=== PATIENT | male | born 1945 | race Caucasian/White ===

== ENCOUNTER → 2016-05-30 13:28 | Outpatient (CLI) | payer MEDICARE, OTHER, BC ==
[2014-11-05 09:43] VITALS: BMI 32.6
[~2016-05-30 13:28] MED LIST: BAYER CHEWABLE81 MG PO; CARDIZEM CD300 MG PO; CENTRUM COMPLE1 EACH PO; DICLOFENAC SODI50 MG PO; FEXOFENADINE H180 MG PO; GEMFIBROZIL600 MG PO; GLIPIZIDE10 MG PO; HEMOCYTE PLUS C1 CAP PO; HYDROCODON-ACE1 EAC7 PO; HYDROCODONE-APA1 TAB PO; METFORMIN HCL500 M1 PO; MIRAPEX0.25 MG PO; PRAVACHOL20 MG PO; XARELTO20 MG PO; ZESTRIL20 MG PO; ZYLOPRIM300 MG PO; [UNRECOGNIZED DRUG - REMARK] PO
[2016-05-30 16:37] LABS: ERYTHROCYTE SEDIMENTATION RATE 6 mm/hr (0-20)
[2016-05-31 10:20] LABS: ANA REFLEX - DIRECT Negative (Negative)
== END | disposition home or self-care (01) ==
LOC: D.RT 13:28
PROVIDERS: Internal Medicine Pulmonary Disease
DX: J90 Pleural effusion, not elsewhere classified (principal)

== ENCOUNTER → 2016-06-27 19:37 | Outpatient (CLI) | payer MEDICARE, OTHER, BC ==
[2014-11-05 09:43] VITALS: BMI 32.6
== END | disposition home or self-care (01) ==
LOC: D.SLEEP 19:37
DX: G47.36 Sleep related hypoventilation in conditions classified elsewhere (principal)

== ENCOUNTER → 2017-04-27 13:30 | Outpatient (CLI) | payer MEDICARE, OTHER, BC ==
[2014-11-05 09:43] VITALS: BMI 32.6
== END | disposition home or self-care (01) ==
LOC: D.RT 13:30
DX: J45.909 Unspecified asthma, uncomplicated (principal)

== ENCOUNTER → 2018-05-02 09:52 | Outpatient (CLI) | payer MEDICARE, OTHER, BC ==
[2014-11-05 09:43] VITALS: BMI 32.6
== END | disposition home or self-care (01) ==
LOC: D.RT 09:52
PROVIDERS: ATTEND Internal Medicine Pulmonary Disease
DX: J45.909 Unspecified asthma, uncomplicated (principal)

== ENCOUNTER → 2018-06-19 10:06 | Outpatient (CLI) | payer MEDICARE, OTHER, BC ==
[2014-11-05 09:43] VITALS: BMI 32.6
--- NOTE | 2018-06-26 13:33 | EC ---
PATIENT:AZAM LATHAM DATE OF SERVICE: 06/19/18 SEX: M MEDICAL RECORD: [id number] DATE OF : 45 [facility] AGE OF PATIENT: 72 ADMISSION DATE: 06/19/18 REFERRING PHYSICIAN: INTERPRETING PHYSICIAN: EDEN MAURICIO MD ECHOCARDIOGRAM REPORT ECHO CHARGES 4 ECHO COMPLETE Date: 06/19/18 CLINICAL DIAGNOSIS: H/O CAD/CABG/HTN ECHOCARDIOGRAPHIC MEASUREMENTS (adult normal given) AC root (d.<3.7cm) 3.5 cm LV Septum d (<1.2 cm> 1.2 cm Valve Excursion 2.1 cm LV Septum (systole) 1.9 cm Left Atria (s.<4.0cm> 5.7 cm LVPW d(<1.2cm) 1.2 cm RV (d.<2.3cm) 3.3 cm LVPW (sytole) 1.6 cm LV diastole(<5.6CM) 6.7 cm MV E-F(>70mm/sec) cm LV systole 4.6 cm LVOT Diameter 1.9 cm MV exc.(>10mm) cm Est.ejection fraction (50-75%) % DOPPLER: LVIT cm/sec A 100 cm/sec E 57.0 cm/sec LA cm/sec RVSP 27.0 mmHg LVOT 107 cm/sec AOP1/2T m/s Asc. Ao 142 cm/sec RVOT 68.0 cm/sec RA cm/sec PA 94.0 cm/sec AV Gradient Peak 8.1 mmHg AV Mean 4.5 mmHg AV Area 2.0 cm MV Gradient Peak 6.7 mmHg MV Mean 2.2 mmHg MV Area cm COMMENTS: OP - HC Manager Office: Kip HUTCHINSON LEA Production Wood Craftsman: 3 Dr. Clayton TAPE# PACS Pericardial Effusion N DATE OF SERVICE: Adequate 2D echo, color flow, spectral Doppler, and M-Mode. Borderline LVH. LV internal dimension is normal. Wall motion is normal. EF is greater than or equal to 55%. Aortic valve is sclerotic. No evidence of stenosis on Doppler interrogation. Left atrium is dilated at 5.7 cm. Mitral valve shows no prolapse. Mild MR. Right-sided chambers grossly normal. Mild TR. TRANSINT:[id number] Voice Confirmation ID: [id number] DOCUMENT ID: [id number] ECHOCARDIOGRAM REPORT [id number] AZAM LATHAM,EDEN Wall MD at 1333 CC: [id number] DICTATION DATE: 06/24/[address] MAINTENANCE SUPERVISOR: 06/24/18 1355 DEP CLI 06/19/18 [place] [id number] [place] [id number]
== END | disposition home or self-care (01) ==
LOC: D.HCCARDIO 10:00
PROVIDERS: ATTEND Internal Medicine Interventional Cardiology
DX: I25.10 Atherosclerotic heart disease of native coronary artery without angina pectoris (principal)

== ENCOUNTER → 2019-07-09 09:01 | Outpatient (CLI) | payer MEDICARE, OTHER ==
[2014-11-05 09:43] VITALS: BMI 32.6
--- NOTE | 2019-07-10 14:16 | EC ---
PATIENT:AZAM LATHAM DATE OF SERVICE: 07/09/19 SEX: M MEDICAL RECORD: [id number] DATE OF : [birth year] LOCATION:[facility] AGE OF PATIENT: 73 ADMISSION DATE: 07/09/19 REFERRING PHYSICIAN: INTERPRETING PHYSICIAN: EDEN MAURICIO MD ECHOCARDIOGRAM REPORT ECHO CHARGES 4 ECHO COMPLETE Date: 07/09/19 CLINICAL DIAGNOSIS: HTN/CAD ASSESS EF/MR/TR ECHOCARDIOGRAPHIC MEASUREMENTS (adult normal given) AC root (d.<3.7cm) 3.8 cm LV Septum d (<1.2 cm> 1.5 cm Valve Excursion 2.2 cm LV Septum (systole) 1.8 cm Left Atria (s.<4.0cm> 4.6 cm LVPW d(<1.2cm) 1.8 cm RV (d.<2.3cm) 4.2 cm LVPW (sytole) 2.0 cm LV diastole(<5.6CM) 5.4 cm MV E-F(>70mm/sec) cm LV systole 4.5 cm LVOT Diameter 2.0 cm MV exc.(>10mm) 0.90 cm Est.ejection fraction (50-75%) % DOPPLER: LVIT cm/sec A 113.0cm/sec E 79.0 cm/sec LA cm/sec RVSP 36 mmHg LVOT 120 cm/sec AOP1/2T m/s Asc. Ao 152 cm/sec RVOT 83 cm/sec RA cm/sec PA 92 cm/sec AV Gradient Peak 9.26 mmHg AV Mean 5.10 mmHg AV Area 2.8 cm MV Gradient Peak 7.27 mmHg MV Mean 2.47 mmHg MV Area cm COMMENTS: Reformatory Attendant: 2 ROSENDO CUMMINS Insurance Administrator: 3 Dr. Clayton TAPE# PACS Pericardial Effusion N DATE OF SERVICE: Adequate 2D, color flow imaging, spectral Doppler, and M-Mode LVH is present. LV internal dimensions are normal. Wall motion is normal. EF is greater than or equal to 55%. Aortic valve is sclerotic. No evidence of stenosis by Doppler interrogation. Left atrium is mildly dilated at 4.6 cm. Mitral valve shows no prolapse. Trace MR. Right-sided chambers are grossly normal. Trace TR. ECHOCARDIOGRAM REPORT [id number] AZAM LATHAM TRANSINT:[id number] Voice Confirmation ID: [id number] DOCUMENT ID: [id number] EDEN MAURICIO MD at 1416 CC: [id number] DICTATION DATE: 07/10/19817 TRAFFIC CIRCUIT ENGINEER: 07/10/1949 DEP CLI 07/09/19 [place] [id number] [place] [id number]
== END | disposition home or self-care (01) ==
LOC: D.HCCECHO 09:00
PROVIDERS: ATTEND Internal Medicine Interventional Cardiology
DX: I10 Essential (primary) hypertension (principal)

== ENCOUNTER → 2019-07-29 11:29 | Outpatient (CLI) | payer MEDICARE, OTHER ==
[2014-11-05 09:43] VITALS: BMI 32.6
== END | disposition home or self-care (01) ==
LOC: D.LABREF 11:29
PROVIDERS: ATTEND Internal Medicine Pulmonary Disease
DX: Z11.59 Encounter for screening for other viral diseases (principal)

== ENCOUNTER → 2019-07-30 11:52 | Outpatient (CLI) | payer MEDICARE, OTHER, BC ==
[2014-11-05 09:43] VITALS: BMI 32.6
== END | disposition home or self-care (01) ==
LOC: D.RT 05-28 11:00
PROVIDERS: ATTEND Internal Medicine Pulmonary Disease
DX: J45.909 Unspecified asthma, uncomplicated (principal)

== ENCOUNTER 2019-08-07 10:51 | Emergency (ER) | payer MEDICARE, OTHER, BC ==
[~2019-08-07] VITALS: Ht 180.3 cm; Wt 100.0 kg
[2019-08-07 11:00] VITALS: Ht 180.3 cm; Wt 100.0 kg
[2019-08-07] MEDS ORDERED: SLOW RELEASE I160 MG PO (11:07)
[2019-08-07] MEDS ORDERED: KLOR-CON 1010 MEQ PO (11:08)
[2019-08-07] MEDS ORDERED: LYRICA50 MG PO (11:08)
[2019-08-07 14:13] VITALS: BP 133/45
== END 2019-08-07 14:15 | disposition other institution (70) ==
LOC: D.ER 10:51
DX: K92.2 Gastrointestinal hemorrhage, unspecified (principal); D64.9 Anemia, unspecified; T17.918A Gastric contents in respiratory tract, part unspecified causing other injury, initial encounter; K92.0 Hematemesis; E87.5 Hyperkalemia; K92.1 Melena; E11.9 Type 2 diabetes mellitus without complications; I10 Essential (primary) hypertension; Z79.84 Long term (current) use of oral hypoglycemic drugs; R53.1 Weakness

== ENCOUNTER 2019-10-02 12:33 | Inpatient (IN) | payer MEDICARE, OTHER, BC ==
[~2019-10-02] VITALS: Ht 177.8 cm; Wt 97.5 kg
[~2019-10-02 12:33] MED LIST changes: +KLOR-CON 1010 MEQ PO; +LYRICA50 MG PO; +SLOW RELEASE I160 MG PO
[2019-10-07] MEDS ORDERED: SINGULAIR10 MG PO (13:44)
[2019-10-07] MEDS ORDERED: PROTONIX40 MG PO (14:07)
[2019-10-08 11:57] LABS: CALCIUM 9.9 mg/dL (8.5-10.1); CREATININE - SERUM 1.4 mg/dL (0.6-1.3)
[2019-10-08 12:03] LABS: BASOPHILS 0.3 % (0-2); EOSINOPHILS 1.8 % (0-7); HEMATOCRIT 42.7 % (42.0-54.0); HEMOGLOBIN 14.3 g/dL (13.5-17.5); IMMATURE GRANULOCYTES 0.3 % (0-5); LYMPHOCYTES 14.9 % (15-50); MCH 31.8 pg (26.0-34.0); MCHC 33.5 g/dL (31.0-37.0); MCV 95.1 fL (80.0-100.0); MEAN PLATELET VOLUME 8.8 fL (7.4-10.4); NEUTROPHILS 71.7 % (40-80); PLATELET COUNT 253 10x3/uL (130-400); RBC 4.49 10x6/uL (4.20-6.10); RDW 15.1 % (11.5-14.5); WBC 6.8 10x3/uL (4.8-10.8)
[2019-10-08 12:13] LABS: APTT 32.3 SECONDS (22.8-39.4); INR 1.73 (0.85-1.17); PROTIME 20.1 SECONDS (11.6-15.0)
[2019-10-08 12:17] LABS: BILIRUBIN NEGATIVE (NEGATIVE); GLUCOSE NEGATIVE (NEGATIVE); KETONE NEGATIVE (NEGATIVE); NITRITE NEGATIVE (NEGATIVE); UROBILINOGEN NORMAL (NORMAL)
[2019-10-13] VITALS (13 sets, daily range): BP systolic 92–149; BP diastolic 56–88; BMI 30.9
--- NOTE | 2019-10-13 14:03 | NUR ---
PATIENT IN ROOM VIA BED. POST OP VITAL SIGNS TAKEN. ASSESSMENT PER FLOWSHEET. DENIES PAIN OR NEEDS AT THIS TIME. BED LOW POSITION, CALL LIGHT IN REACH, FALL PRECAUTIONS IN PLACE. WILL CONTINUE TO MONITOR.
--- NOTE | 2019-10-13 18:30 | NUR ---
PATIENT PLACED ON CPM MACHINE PER ORDER.
[2019-10-14] VITALS: BP 120/66
[2019-10-14 04:00] VITALS: BP 92/46
[2019-10-14 04:52] LABS: HEMOGLOBIN 11.1 g/dL (13.5-17.5); MCHC 32.6 g/dL (31.0-37.0); MEAN PLATELET VOLUME 8.7 fL (7.4-10.4); RBC 3.58 10x6/uL (4.20-6.10); RDW 14.8 % (11.5-14.5); WBC 5.5 10x3/uL (4.8-10.8)
[2019-10-14 05:07] LABS: ANION GAP 10.5 mmol/L (8-16); CALCIUM 7.5 mg/dL (8.5-10.1); CREATININE - SERUM 1.3 mg/dL (0.6-1.3); POTASSIUM - SERUM 4.5 mmol/L (3.5-5.1)
--- NOTE | 2019-10-14 07:08 | CN ---
PATIENT NAME:AZAM LATHAM MEDICAL RECORD: [id number] : 45 LOCATION:D[facility] ADMIT DATE: 10/13/19 ACCOUNT: [id number] CONSULTING PHYSICIAN: CYNTHIA CURTIS MD REFERRING PHYSICIAN: CHARLOTTE MILLS MD DATE OF CONSULTATION: 10/13/2019 REASON FOR CONSULTATION: Medical management and diabetic post left total knee replacement. ADMITTING PHYSICIAN: Charlotte Mills MD HISTORY OF PRESENT ILLNESS: The patient is a 73-year-old male, history of metabolic syndrome and CAD. He has been stable from those standpoints recently, in August of this year developed a bleeding ulcer, requiring transient intubation because of hemorrhagic shock. He received 4 units of packed cells and stabilized. Since that time, he has been doing well from a GI standpoint. His preoperative hemoglobin was 14. He has had no melena. He is now immediately postoperative, alert and oriented with anesthesia in his left lower leg. PAST MEDICAL HISTORY: Bleeding duodenal ulcer as mentioned above; history of DVT, PE, on chronic Xarelto therapy; acute blood loss anemia, 08/11/2019; type 2 diabetes mellitus; renal insufficiency; osteoarthritis; hyperlipidemia; Agent Kinney exposure; asbestos exposure; history of asthma; BPH; CHF; diverticulosis; GERD; gout; essential hypertension; history of renal stones; obstructive lung disease; adult sleep apnea; PE, 1980. PAST SURGICAL HISTORY: Cholecystectomy, CABG, history of cyst removal from left kidney, kidney stones removed surgically, tonsillectomy, colonoscopy. ALLERGIES: None known. FAMILY HISTORY: Father had colon cancer. Mother, hypertension and heart disease. SOCIAL HISTORY: Never smoked. Was exposed to asbestos. Does not use alcohol. He is retired from [employer] and is . HOME MEDICATIONS: Xarelto 20 mg at bedtime, diltiazem CD 300 mg a day, gemfibrozil 600 mg a day, lisinopril 20 mg a day, pravastatin 20 mg at bedtime, potassium chloride 10 mEq ER daily, Lyrica 50 mg p.o. daily, Mirapex 0.5 mg at bedtime, Singulair 10 mg at bedtime, Protonix 40 mg a day, Glucotrol 10 mg daily, metformin 500 mg at bedtime, folic acid 1 mg daily, allopurinol 300 mg daily. REVIEW OF SYSTEMS: CONSTITUTIONAL: Denies fever or fatigue recently. HEENT: No recent visual change, sinus congestion, or sore throat. Wears glasses to read. RESPIRATORY: No exertional shortness of breath, cough, sputum production. CARDIAC: No recent chest pain, PND, orthopnea, claudication, or edema. GASTROINTESTINAL: No recent nausea, vomiting, change in stools, blood per rectum, or melena. ENDOCRINE: Denies polyuria, polydipsia, heat or cold intolerance. CONSULT REPORT [id number] YEISONAZAM ALEJO NEUROLOGIC: No history of stroke, TIA, vascular headaches, or seizures. PSYCHIATRIC: Denies depressed mood. MUSCULOSKELETAL: Chronic severe pain in his left knee. PHYSICAL EXAMINATION: VITAL SIGNS: Temperature 97.7, pulse 69 and regular, respirations 14, blood pressure 135/67 with a sat of 95% on room air. GENERAL: She is alert and oriented. HEENT: Eyes are clear. Oropharynx unremarkable. NECK: Supple. CHEST: Healed sternotomy scar. LUNGS: Clear. HEART: Regular without murmur. PMI appropriate. ABDOMEN: Soft, nontender. GENITOURINARY: Deferred. EXTREMITIES: His left knee is postoperative and wrapped in a dressing and Melchor bandage without drain. Right knee shows good range of motion, no peripheral edema, no cyanosis. NEUROLOGICAL: Oriented to person, place, and time. Cranial nerves grossly intact. Gait was not tested due to postoperative state. LABORATORY DATA: CBC: White count 6800, H&H are 14 and 42.7 respectively. Sodium is 134, BUN and creatinine are 26 and 1.4, glucose is 118 fasting, potassium 5.0. Urinalysis is clear. ASSESSMENT: 1. Postoperative day zero, left total knee replacement. 2. Recent peptic ulcer disease and hemorrhage, clinically stable. 3. CAD, stable. 4. AODM, well controlled. 5. Diabetic neuropathy. 6. Hyperlipidemia; hypertension; BPH; remote, PE, DVT, on chronic Xarelto anticoagulation; restrictive lung disease; obstructive sleep apnea. PLAN: Continue current medicines. Follow H&H. We will resume Xarelto when safe postoperatively as determined by Dr. Mills. Thank you for this consult. NTS:[id number] Voice Confirmation ID: [id number] DOCUMENT ID: [id number] CYNTHIA CURTIS MD at 9708 CC: [id number] DICTATION DATE: 10/13/191806 OPERATOR AUTOMATED PROCESS: 10/13/191931 ADM IN [place] [address] [place] [address]
--- NOTE | 2019-10-14 07:46 | NUR ---
ALERT AND ORIENTED. LUNGS CLEAR BILATERALLY. HEART SOUNDS S1 AND S2 HEARD IN ALL OTRRE. BOWEL SOUNDS ACTIVE X 4. IV TO RFA PATENT WITHOUT REDNESS. DENIES NEEDS. BED LOW. CALL MCGRAW AND PERSONAL ITEMS IN REACH. WILL CONTINUE TO MONITOR.
[2019-10-14 09:17] VITALS: BP 112/54
--- NOTE | 2019-10-14 11:21 | NUR ---
REPORT CALLED TO SHELLI ON M3.
--- NOTE | 2019-10-14 12:19 | NUR ---
PT RECIEVED FROM MED SURG BY BED, CARE ASSUMED. FAMILY AT BEDSIDE. BED LOW, CALL LIGHT IN REACH. NO OTHER NEEDS AT THIS TIME.
[2019-10-14 14:06] VITALS: Ht 177.8 cm; Wt 97.5 kg
[2019-10-14 15:11] VITALS: BP 155/66
[2019-10-14 20:00] VITALS: BP 147/70
--- NOTE | 2019-10-14 20:00 | NUR ---
ALERT RESTING IN BED,MEDICATED FOR PAIN ORDERED, CPM IN USE, SEE SHIFT ASSESSMENT CALL LIGHT IN REACH
[2019-10-15 04:00] VITALS: BP 156/76
[2019-10-15 08:00] VITALS: BP 147/66
--- NOTE | 2019-10-15 08:25 | NUR ---
PT SITTING UP IN BED A&O X4, DENIES PAIN. PIV IN RIGHT FOREARM, PATENT, NO REDNESS OR SWELLING. SCD ON RLE. TELEMETRY IN PLACE, 75 SR BUNDLE BRANCH BLOCK. CPM IN PLACE ON LLE. TITA WRAP ON LEFT KNEE, C/D/I. PT ABLE TO ABULATE WITH ONE PERSON ASSIST. EDUCATED PT ON CL AND NEEDS. BED LOW, RAILS X2. CL IN REACH. WILL CONTINUE TO MONITOR.
--- NOTE | 2019-10-15 09:00 | NUR ---
REMOVED CPM FROM LLE. ASSISTED PT TO CHAIR, PT TOLERATED WELL. DENIES FURTHER NEEDS. CHAIR ALARM ON, WILL CONTINUE TO MONITOR.
--- NOTE | 2019-10-15 11:23 | NUR ---
CHECKED BS, ADMINISTERED INSULIN. PT SITTING UP IN CHAIR, DENIES FURTHER NEEDS. WILL CONTINUE TO MONITOR
[2019-10-15 11:25] VITALS: BP 150/72
--- NOTE | 2019-10-15 15:24 | MORECARE ---
CASE MANAGEMENT DISCHARGE SUMMARY PATIENT: AZAM LATHAM UNIT: [id number] ADM DATE: 10/13/19 AGE: 73 : 45 SEX: M ROOM/BED: D.1207 AUTHOR: STEPHANIE BROWN PHYSICIAN: REFERRING PHYSICIAN: CHARLOTTE MILLS MD DATE OF SERVICE: 10/15/19 Discharge Plan Patient Name: AZAM LATHAM [facility] [facility] 1945 Planned Disposition: Home or Self Care Anticipated Discharge Date: Discharge Date: Expected LOS: Initial Reviewer: [email or web address] Initial Review Date: 10/13/2019 Generated: 10/15/19 4:23 pm DCPIA - Discharge Planning Initial Assessment Updated by [email or web address]: Jena Lopez on 10/15/19 3:18 pm * Is the patient Alert and Oriented? Yes * How many steps to enter\exit or inside your home? * PCP NEPALESE * Pharmacy [facility] IN [place] * Preadmission Environment Home with Family * ADLs Independent * Equipment Rolling Walker * List name and contact numbers for known caregivers / representatives who currently or will assist patient after discharge: ALEXANDRA (SPOUSE) [phone] * Verbal permission to speak to the caregivers and representatives has been obtained from the patient. N/A * Community resources currently utilized None * Additional services required to return to the preadmission environment? Yes * Can the patient safely return to the preadmission environment? Yes * Has this patient been hospitalized within the prior 30 days at any hospital? No Patient Name: AZAM LATHAM Page [id number] at 1524 All edits/amendments must be made on the electronic document DICTATION DATE: 10/15/19 1524 WET CLEANER MACHINE: MELISSA 10/15/19 1524 RPT#: [id number] DC DATE: STATUS: ADM IN [facility] [address] [place] [address] END OF REPORT
--- NOTE | 2019-10-15 15:33 | MORECARE ---
CASE MANAGEMENT DISCHARGE SUMMARY PATIENT: AZAM LATHAM UNIT: [id number] ADM DATE: 10/13/19 AGE: 73 : 45 SEX: M ROOM/BED: D.1207 AUTHOR: STEPHANIE,DOC PHYSICIAN: REFERRING PHYSICIAN: CHARLOTTE MILLS MD DATE OF SERVICE: 10/15/19 Discharge Plan Patient Name: AZAM LATHAM Facility: [facility]:[place] : 1945 Planned Disposition: Home or Self Care Anticipated Discharge Date: Discharge Date: Expected LOS: Initial Reviewer: [email or web address] Initial Review Date: 10/13/2019 Generated: 10/15/19 4:32 pm Comments DCP- Discharge Planning Updated by [email or web address]: Jena Lopez on 10/15/19 2:[address] Patient Name: AZAM LATHAM Admission Status: Urgent Accout number: [id number] Admission Date: 10-13-2019 : 1945 Admission Diagnosis: Attending: CHARLOTTE MILLS Current LOS: 2 Anticipated DC Date: Planned Disposition: Home or Self Care Primary Insurance: MEDICARE A & B Discharge Planning Comments: CM met with patient to complete initial dc planning assessment. CM educated patient on the CM role and verbal consent given by patient to complete assessment. Patient lives at home with his spouse. At discharge patient plans to return home and feels this is a safe discharge. CM discussed availability of home health, rehab services, and medical equipment. He has a walker in the room. He would like to go to [facility]. I will call and make the first appointment for him. His will be his company driver home. Patient denied known discharge needs at this time. IMM served and explained. CM will continue to follow and will assist as needed with dc plans/needs. Process Stripper: Jena Lopez DCPIA - Discharge Planning Initial Assessment Updated by [email or web address]: Jena Lopez on 10/15/19 3:18 pm * Is the patient Alert and Oriented? Yes * How many steps to enter\exit or inside your home? * PCP CZECH * Pharmacy [facility] IN [place] * Preadmission Environment Home with Family * ADLs Independent * Equipment Rolling Walker * List name and contact numbers for known caregivers / representatives who currently or will assist patient after discharge: ALEXANDRA (SPOUSE) [phone] * Verbal permission to speak to the caregivers and representatives has been obtained from the patient. N/A * Community resources currently utilized None * Additional services required to return to the preadmission environment? Yes * Can the patient safely return to the preadmission environment? Yes * Has this patient been hospitalized within the prior 30 days at any hospital? No Coverage Notice Reviewer: [id number] Clovis Lopez Notice Issued Date-Time: 10/15/2019 13:45 Notice Type: IM Discharge Notice Notice Delivered To: Patient Relationship to Patient: Referral Manager Name: Delivery Method: HAND - Hand Delivered Chelsea Days: Prior Verbal Notification: Recipient Understood Notice: Yes Recipient Signature: Yes Med Rec Note Co-signed by Attending: Coverage Notice Comment: Last DP export: 10/15/19 2:24 p Patient Name: AZAM LATHAM Page [id number] at 1533 All edits/amendments must be made on the electronic document DICTATION DATE: 10/15/19 153 FEED CRUSHER OPERATOR: MELISSA 10/15/19 153 RPT#: [id number] DC DATE: STATUS: ADM IN [facility] [address] [place] [address] END OF REPORT
[2019-10-15 16:00] VITALS: BP 127/60
--- NOTE | 2019-10-15 17:15 | NUR ---
PT C/O PAIN 08/12, PROVIDED PAIN MEDS. DENIES FURTHER NEEDS. BED LOW, CL IN REACH. WILL CONTINUE TO MONITOR.
[2019-10-15 19:35] VITALS: BP 138/65
[2019-10-15 19:45] LABS: HEMATOCRIT 34.9 % (42.0-54.0); HEMOGLOBIN 11.6 g/dL (13.5-17.5); MCH 31.4 pg (26.0-34.0); MCHC 33.2 g/dL (31.0-37.0); MCV 94.6 fL (80.0-100.0); MEAN PLATELET VOLUME 8.8 fL (7.4-10.4); RBC 3.69 10x6/uL (4.20-6.10); RDW 14.7 % (11.5-14.5)
[2019-10-15 19:46] LABS: WBC 9.4 10x3/uL (4.8-10.8)
--- NOTE | 2019-10-15 20:00 | NUR ---
ALERT RESTING IN BED CPM IN USE, DENIES NEEDS AT THIS TIME, AT BEDSIDE, CALL LIGHT IN REACH
[2019-10-16 05:39] VITALS: BP 148/74
[2019-10-16 07:32] VITALS: BP 140/69
[2019-10-16] MEDS ORDERED: HYDROCODON-ACE1 EA10 PO (08:14)
--- NOTE | 2019-10-16 08:58 | NUR ---
PT SITTING UP IN BED A&O X4. C/O PAIN 06/12. PIV IN R FOREARM, S/L, PATENT, NO REDNESS OR SWELLING. PLEXI ON BILAT HEELS. TELEMETRY IN PLACE, 75 SR BBB. TITA WRAP ON LEFT KNEE C/D/I. PT WEARING GLASSES AND IS [place]K. PT ABLE TO AMBULATE WITH ONE PERSON ASSIST. EDUCATED PT ON CL AND NEEDS. BED LOW, RAILS X2. CL IN REACH.
--- NOTE | 2019-10-16 09:22 | MORECARE ---
CASE MANAGEMENT DISCHARGE SUMMARY PATIENT: AZAM LATHAM UNIT: [id number] ADM DATE: 10/13/19 AGE: 73 : 45 SEX: M ROOM/BED: D.1207 AUTHOR: STEPHANIE,STEPHANIE PHYSICIAN: REFERRING PHYSICIAN: CHARLOTTE MILLS MD DATE OF SERVICE: 10/16/19 Discharge Plan Patient Name: AZAM LATHAM Facility: [facility]:[place] : 1945 Planned Disposition: Home or Self Care Anticipated Discharge Date: Discharge Date: Expected LOS: Initial Reviewer: [email or web address] Initial Review Date: 10/13/2019 Generated: 10/16/19 10:22 am Comments DCP- Discharge Planning Updated by [email or web address]: Jena Lopez on 10/16/19 8:[address] I HAVE SET UP THE PATIENT'S OP PT WITH [facility] I SPOKE WITH THOMAS. HIS APPOINTMENT IS Sunday AT 8:00 AM. I WILL FAX OVER THE ORDER AND THE PATIENT WILL ALSO GET A COPY OF THE APPOINTMENT AND TIME IN HIS DISCHARGE PACKET DCP- Discharge Planning Updated by [email or web address]: Jena Lopez on 10/15/19 2:[address] Patient Name: AZAM LATHAM Admission Status: Urgent Accout number: [id number] Admission Date: 10-13-2019 : 1945 Admission Diagnosis: Attending: CHARLOTTE MILLS Current LOS: 2 Anticipated DC Date: Planned Disposition: Home or Self Care Primary Insurance: MEDICARE A & B Discharge Planning Comments: CM met with patient to complete initial dc planning assessment. CM educated patient on the CM role and verbal consent given by patient to complete assessment. Patient lives at home with his spouse. At discharge patient plans to return home and feels this is a safe discharge. CM discussed availability of home health, rehab services, and medical equipment. He has a walker in the room. He would like to go to [facility]. I will call and make the first appointment for him. His will be his regional dedicated truck driver home. Patient denied known discharge needs at this time. IMM served and explained. CM will continue to follow and will assist as needed with dc plans/needs. Machine Printer: Jena Lopez DCPIA - Discharge Planning Initial Assessment Updated by [email or web address]: Jena Lopez on 10/15/19 3:18 pm * Is the patient Alert and Oriented? Yes * How many steps to enter\exit or inside your home? * PCP CHINESE * Pharmacy [facility] IN [place] * Preadmission Environment Home with Family * ADLs Independent * Equipment Rolling Walker * List name and contact numbers for known caregivers / representatives who currently or will assist patient after discharge: ALEXANDRA (SPOUSE) [phone] * Verbal permission to speak to the caregivers and representatives has been obtained from the patient. N/A * Community resources currently utilized None * Additional services required to return to the preadmission environment? Yes * Can the patient safely return to the preadmission environment? Yes * Has this patient been hospitalized within the prior 30 days at any hospital? No Coverage Notice Reviewer: [email or web address] - Jena Lopez Notice Issued Date-Time: 10/15/2019 13:45 Notice Type: IM Discharge Notice Notice Delivered To: Patient Relationship to Patient: Wool Tamper Name: Delivery Method: HAND - Hand Delivered Chelsea Days: Prior Verbal Notification: Recipient Understood Notice: Yes Recipient Signature: Yes Med Rec Note Co-signed by Attending: Coverage Notice Comment: Last DP export: 10/15/19 2:33 p Patient Name: AZAM LATHAM Page [phone] at 0922 All edits/amendments must be made on the electronic document DICTATION DATE: 10/16/19921 SURG PHYSICIAN ASST: MELISSA 10/16/19921 RPT#: [id number] DC DATE: STATUS: ADM IN [facility] [address] [place] [address] END OF REPORT
--- NOTE | 2019-10-16 09:30 | MORECARE ---
CASE MANAGEMENT DISCHARGE SUMMARY PATIENT: AZAM LATHAM UNIT: [id number] ADM DATE: 10/13/19 AGE: 73 : 45 SEX: M ROOM/BED: D.1207 AUTHOR: STEPHANIE BROWN PHYSICIAN: REFERRING PHYSICIAN: CHARLOTTE MILLS MD DATE OF SERVICE: 10/16/19 Discharge Plan Patient Name: AZAM LATHAM Facility[facility]:[place] : 1945 Planned Disposition: Home or Self Care Anticipated Discharge Date: Discharge Date: Expected LOS: Initial Reviewer: [email or web address] Initial Review Date: 10/13/2019 Generated: 10/16/19 10:29 am Comments DCP- Discharge Planning Updated by [email or web address]: Jena Lopez on 10/16/19 8:[address] PATIENTS DME HAS BEEN SET UP AND DELIVERED OR UZIEL BE DELIVERED TO HIS HOME BY [facility]. PATIENT HAS A WALKER IN HIS ROOM ALREADY DCP- Discharge Planning Updated by [email or web address]: Jena Lopez on 10/16/19 8:[address] I HAVE SET UP THE PATIENT'S OP PT WITH [facility] I SPOKE WITH THOMAS. HIS APPOINTMENT IS Sunday AT 8:00 AM. I WILL FAX OVER THE ORDER AND THE PATIENT WILL ALSO GET A COPY OF THE APPOINTMENT AND TIME IN HIS DISCHARGE PACKET DCP- Discharge Planning Updated by [email or web address]: Jena Lopez on 10/15/19 2:[address] Patient Name: AZAM LATHAM Admission Status: Urgent Accout number: [id number] Admission Date: 10-13-2019 : 1945 Admission Diagnosis: Attending: CHARLOTTE MILLS Current LOS: 2 Anticipated DC Date: Planned Disposition: Home or Self Care Primary Insurance: MEDICARE A & B Discharge Planning Comments: CM met with patient to complete initial dc planning assessment. CM educated patient on the CM role and verbal consent given by patient to complete assessment. Patient lives at home with his spouse. At discharge patient plans to return home and feels this is a safe discharge. CM discussed availability of home health, rehab services, and medical equipment. He has a walker in the room. He would like to go to [facility]. I will call and make the first appointment for him. His will be his shuttle driver home. Patient denied known discharge needs at this time. IMM served and explained. CM will continue to follow and will assist as needed with dc plans/needs. Psychiatric Np: Jena Lopez DCPIA - Discharge Planning Initial Assessment Updated by [email or web address]: Jena Lopez on 10/15/19 3:18 pm * Is the patient Alert and Oriented? Yes * How many steps to enter\exit or inside your home? * PCP CHILEAN * Pharmacy [facility] IN [place] * Preadmission Environment Home with Family * ADLs Independent * Equipment Rolling Walker * List name and contact numbers for known caregivers / representatives who currently or will assist patient after discharge: ALEXANDRA (SPOUSE) [phone] * Verbal permission to speak to the caregivers and representatives has been obtained from the patient. N/A * Community resources currently utilized None * Additional services required to return to the preadmission environment? Yes * Can the patient safely return to the preadmission environment? Yes * Has this patient been hospitalized within the prior 30 days at any hospital? No External Providers External Provider: [facility] Next Contact Date: Service Request Date: Service Type: Resolution: Reviewer: Comments: Coverage Notice Reviewer: [id number] - Jena Lopez Notice Issued Date-Time: 10/15/2019 13:45 Notice Type: IM Discharge Notice Notice Delivered To: Patient Relationship to Patient: Salvage Engineer Name: Delivery Method: HAND - Hand Delivered Chelsea Days: Prior Verbal Notification: Recipient Understood Notice: Yes Recipient Signature: Yes Med Rec Note Co-signed by Attending: Coverage Notice Comment: Last DP export: 10/16/19 8:22 a Patient Name: AZAM LATHAM Page [phone] at 0930 All edits/amendments must be made on the electronic document DICTATION DATE: 10/16/19928 TREATMENT MANAGER: MELISSA 10/16/19928 RPT#: [id number] DC DATE: STATUS: ADM IN [facility] [address] [place] [address] END OF REPORT
--- NOTE | 2019-10-16 09:45 | NUR ---
PT C/O PAIN 08/12, PROVIDED MEDS PER ORDER. DENIES FURTHER NEEDS. WILL CONTINUE TO MONITOR.
--- NOTE | 2019-10-16 14:46 | NUR ---
EDUCATED PT ON DISCHARGE INSTRUCTIONS, VERBALIZED UNDERSTANDING. CHANGED AQUACELL AG AND EDUCATED ON NEW DRESSING APPLICATION, VERBALIZED UNDERSTANDING. ONE AQUACELL AG SENT WITH PT. D/C PIV, PT TOLERATED WELL. ESCORTED TO MAIN EXIT VIA WHEELCHAIR.
--- NOTE | 2019-10-17 10:38 | MORECARE ---
CASE MANAGEMENT DISCHARGE SUMMARY PATIENT: AZAM LATHAM UNIT: [id number] ADM DATE: 10/13/19 AGE: 73 : [birth year] SEX: M ROOM/BED: D.1207 AUTHOR: STEPHANIE,DOC PHYSICIAN: REFERRING PHYSICIAN: CHARLOTTE MILLS MD DATE OF SERVICE: 10/17/19 Discharge Plan Patient Name: AZAM LATHAM Facility: [facility]:[place] : 1945 Planned Disposition: Home or Self Care Anticipated Discharge Date: Discharge Date: 10/16/2019 Expected LOS: Initial Reviewer: [email or web address] Initial Review Date: 10/13/2019 Generated: 10/17/19 11:37 am Comments DCP- Discharge Planning Updated by [email or web address]: Jena Lopez on 10/16/19 8:[address] PATIENTS DME HAS BEEN SET UP AND DELIVERED OR UZIEL BE DELIVERED TO HIS HOME BY KINEArynga. PATIENT HAS A WALKER IN HIS ROOM ALREADY DCP- Discharge Planning Updated by [email or web address]: Jena Lopez on 10/16/19 8:[address] I HAVE SET UP THE PATIENT'S OP PT WITH [facility] I SPOKE WITH THOMAS. HIS APPOINTMENT IS Sunday AT 8:00 AM. I WILL FAX OVER THE ORDER AND THE PATIENT WILL ALSO GET A COPY OF THE APPOINTMENT AND TIME IN HIS DISCHARGE PACKET DCP- Discharge Planning Updated by [id number]: Jena Lopez on 10/15/19 2:[address] Patient Name: AZAM LATHAM Admission Status: Urgent Accout number: [id number] Admission Date: 10-13-2019 : 1945 Admission Diagnosis: Attending: CHARLOTTE MILLS Current LOS: 2 Anticipated DC Date: Planned Disposition: Home or Self Care Primary Insurance: MEDICARE A & B Discharge Planning Comments: CM met with patient to complete initial dc planning assessment. CM educated patient on the CM role and verbal consent given by patient to complete assessment. Patient lives at home with his spouse. At discharge patient plans to return home and feels this is a safe discharge. CM discussed availability of home health, rehab services, and medical equipment. He has a walker in the room. He would like to go to [facility]. I will call and make the first appointment for him. His will be his cart driver home. Patient denied known discharge needs at this time. IMM served and explained. CM will continue to follow and will assist as needed with dc plans/needs. Organizational Consultant: Jena Lopez DCPIA - Discharge Planning Initial Assessment Updated by [email or web address]: Jena Lopez on 10/15/19 3:18 pm * Is the patient Alert and Oriented? Yes * How many steps to enter\exit or inside your home? * PCP [facility] * Pharmacy [facility] [place] * Preadmission Environment Home with Family * ADLs Independent * Equipment Rolling Walker * List name and contact numbers for known caregivers / representatives who currently or will assist patient after discharge: ALEXANDRA (SPOUSE) [phone] * Verbal permission to speak to the caregivers and representatives has been obtained from the patient. N/A * Community resources currently utilized None * Additional services required to return to the preadmission environment? Yes * Can the patient safely return to the preadmission environment? Yes * Has this patient been hospitalized within the prior 30 days at any hospital? No Coverage Notice Reviewer: [id number] - Jena Lopez Notice Issued Date-Time: 10/15/2019 13:45 Notice Type: IM Discharge Notice Notice Delivered To: Patient Relationship to Patient: Chair Springer Name: Delivery Method: HAND - Hand Delivered Chelsea Days: Prior Verbal Notification: Recipient Understood Notice: Yes Recipient Signature: Yes Med Rec Note Co-signed by Attending: Coverage Notice Comment: Last DP export: 10/16/19 8:30 a Patient Name: AZAM LATHAM Page [phone] at 1038 All edits/amendments must be made on the electronic document DICTATION DATE: 10/17/19 1038 [facility] MELISSA 10/17/19 1038 RPT#: [id number] DC DATE:10/16/19 STATUS: DIS IN [facility] [address] [place] [address] END OF REPORT
--- NOTE | 2019-10-20 09:14 | OP ---
PATIENT NAME: AZAM LATHAM MEDICAL RECORD: [id number] :[birth year] LOCATION:D.M3 D.1207 ADMISSION DATE:10/13/19 SURGEON: CHARLOTTE MILLS MD DATE OF OPERATION: 10/13/2019 PREOPERATIVE DIAGNOSIS: Degenerative arthritis of the left knee. POSTOPERATIVE DIAGNOSIS: Degenerative arthritis of the left knee. PROCEDURE: Left total knee arthroplasty. SURGEON: Charlotte Mills MD ANESTHESIA: General. INTRAOPERATIVE COMPLICATIONS: None. SUMMARY OF PATHOLOGIC FINDINGS: The patient had extensive osteoarthritis primarily medially in the patellofemoral joint. IMPLANTS USED: Jasper triathlon total knee arthroplasty size 6 tibial baseplate, size 6 cruciate retaining femur, size 11 tibial bearing insert and a size 9 x 31 cemented symmetric patella. OPERATIVE SUMMARY IN DETAIL: After obtaining the appropriate preoperative orthopedic surgery consent as well as anesthetic consultation, evaluation, and clearance, the patient was brought to the operating room and placed on the operating table in supine position. After general laryngeal mask airway was administered, tourniquet was placed on the proximal aspect of left lower extremity. Left lower extremity was then prepped and draped in routine sterile fashion. The leg was elevated and exsanguinated, tourniquet was inflated to 350 mmHg. Midline incision was taken down for paramedian arthrotomy. Patella was everted, distal femur was exposed. Soft tissue excision was done in the usual fashion. An intramedullary guide hole was created for intramedullary guided cut of the distal femur. Distal femur was cut appropriately. The proximal tibia was exposed in its entirety. Residual menisci and soft tissue excision was again done. Intramedullary guide hole was created for intramedullary guided cut of the tibia. After the tibia was cut, the appropriate measurements were taken. Chamfer cuts were made for the distal femur. Trials were put in corresponding to the above-mentioned numbers, taken through range of motion and found to be stable in all planes. Final distal femoral and proximal tibial preparations were made for final implant. At this point, the arthritic articular surface of the patella was excised and prepared for patella implantation. The knee was irrigated in pulsatile lavage fashion. The knee ends were dried. All components were cemented into place. Excess cement was removed. After the cement was allowed to harden, it was taken through range of motion, had excellent stability and tracking in all planes. A gram of vancomycin and tobramycin were placed in the joint. Joint cavity was then closed with #2 Ethibond by Ryder Lanza, jose #1 Vicryl, 2-0 Vicryl, skin michelet by KAMILLA Segura, as well. The tourniquet was deflated. The patient was awakened, taken to recovery room in stable condition. All final needle and sponge counts were correct. TRANSINT:[id number] Voice Confirmation ID: [id number] DOCUMENT ID: [id number] OPERATIVE REPORT [id number] AZAM LATHAM MD, CHARLOTTE RIOS at 0914 CC: [id number] DICTATION DATE: 10/16/1950 OPERATING ROOM RN: 10/16/192045 DIS IN 10/16/19 [address] [place] [address]
== END 2019-10-16 15:01 | disposition home or self-care (01) | DRG 470 ==
LOC: D.SDCHOLD 10-08 10:00 → D.MS 10-13 08:20 → D.M3 10-13 08:20 → D.SDCHOLD 10-13 08:20 → D.MS 10-13 13:04 → D.M3 10-14 11:21
PROVIDERS: Family Medicine; ADMIT Orthopaedic Surgery; ATTEND Orthopaedic Surgery
PROC: 0SRD0J9 Replacement of Left Knee Joint with Synthetic Substitute, Cemented, Open Approach (ICD-10-PCS; principal; 2019-10-13 10:15)
DX: M17.12 Unilateral primary osteoarthritis, left knee (principal); I25.10 Atherosclerotic heart disease of native coronary artery without angina pectoris; E78.5 Hyperlipidemia, unspecified; I11.0 Hypertensive heart disease with heart failure; I50.9 Heart failure, unspecified; E11.40 Type 2 diabetes mellitus with diabetic neuropathy, unspecified; Z79.01 Long term (current) use of anticoagulants; Z87.11 Personal history of peptic ulcer disease

== ENCOUNTER 2019-10-22 13:04 | Emergency (ER) | payer MEDICARE, OTHER, BC ==
[~2019-10-22] VITALS: Ht 180.3 cm; Wt 95.5 kg
[~2019-10-22 13:04] MED LIST changes: +HYDROCODON-ACE1 EA10 PO; +PROTONIX40 MG PO; +SINGULAIR10 MG PO
[2019-10-22 13:10] VITALS: Ht 180.3 cm; Wt 95.5 kg
[2019-10-22] MEDS ORDERED: STOOL SOFTENER100 M1 PO (13:12)
[2019-10-22 14:05] LABS: BASOPHILS 0.2 % (0-2); EOSINOPHILS 0.2 % (0-7); HEMATOCRIT 35.8 % (42.0-54.0); IMMATURE GRANULOCYTES 0.6 % (0-5); LYMPHOCYTES 5.6 % (15-50); MCH 31.2 pg (26.0-34.0); MCHC 33.5 g/dL (31.0-37.0); MEAN PLATELET VOLUME 8.2 fL (7.4-10.4); NEUTROPHILS 85.4 % (40-80); RBC 3.85 10x6/uL (4.20-6.10); RDW 14.4 % (11.5-14.5); WBC 9.8 10x3/uL (4.8-10.8)
[2019-10-22 14:10] LABS: PLATELET COUNT 360 10x3/uL (130-400)
[2019-10-22 14:12] LABS: CALC OSMOLALITY 260 mosm/kg (275-300); CALCIUM 9.2 mg/dL (8.5-10.1); CARBON DIOXIDE 22.7 mmol/L (21.0-32.0); CHLORIDE - SERUM 91 mmol/L (98-107); CREATININE - SERUM 1.4 mg/dL (0.6-1.3); POTASSIUM - SERUM 4.7 mmol/L (3.5-5.1); SODIUM 123 mmol/L (136-145); UREA NITROGEN 31 mg/dL (7-18); eGFR NON AFRICAN AMERICAN 53 mL/min (90-120)
[2019-10-22 14:13] LABS: GLUCOSE 214 mg/dL (74-106)
[2019-10-22 14:14] LABS: APTT 33.6 SECONDS (22.8-39.4); INR 2.2 (0.85-1.17); PROTIME 24.1 SECONDS (11.6-15.0)
[2019-10-22 14:15] LABS: D-DIMER-QUANTITATIVE 1.49 ug/mLFEU (0.20-0.54)
[2019-10-22 14:29] LABS: ALBUMIN 2.9 g/dL (3.4-5.0); ALKALINE PHOSPHATASE 76 U/L (30-120); ALT (SGPT) 31 U/L (10-68); BILIRUBIN - TOTAL 0.55 mg/dL (0.2-1.3); CKMB 0.6 U/L (0.0-3.6); CREATINE KINASE 39 UL (21-232); PRO BNP 1257 pg/mL (0-125); PROTEIN - SERUM 7.3 g/dL (6.4-8.2); TROPONIN-I < 0.017 ng/mL (0.000-0.060)
[2019-10-22 16:33] LABS: BILIRUBIN NEGATIVE (NEGATIVE); GLUCOSE NEGATIVE (NEGATIVE); KETONE NEGATIVE (NEGATIVE); NITRITE NEGATIVE (NEGATIVE); UROBILINOGEN NORMAL (NORMAL)
[2019-10-22] MEDS ORDERED: SENNA LAXATIVE8.6 MG PO (16:42)
[2019-10-22 17:19] VITALS: BP 122/68
== END 2019-10-22 17:20 | disposition home or self-care (01) ==
LOC: D.ER 13:04
PROVIDERS: Family Medicine
DX: R06.00 Dyspnea, unspecified (principal); K59.00 Constipation, unspecified; E11.9 Type 2 diabetes mellitus without complications; I10 Essential (primary) hypertension; J45.909 Unspecified asthma, uncomplicated; Z79.84 Long term (current) use of oral hypoglycemic drugs

== ENCOUNTER 2019-10-27 10:47 | Inpatient (IN) | payer MEDICARE, OTHER, BC ==
[~2019-10-27] VITALS: Ht 180.3 cm; Wt 95.3 kg
[2019-10-27] VITALS (7 sets, daily range): BP systolic 109–146; BP diastolic 66–74; BMI 29.3
--- NOTE | ~2019-10-27 | HEMODYNAMI ---
PATIENT:AZAM LATHAM MEDICAL RECORD: [id number] : [birth year] LOCATION:[facility] D[facility] ADMISSION DATE: 10/28/19 Generatedon:10/30/20198:12 Patient name: AZAM LATHAM Patient #: [id number] SSN: : 1945 Date of study: 10/30/2019 Page: Of Hemodynamic Procedure Report Patient Data Patient Demographics Procedure consent was obtained First Name: AZAM Gender: Male Last Name: YEISON : 1945 Middle Initial: SAPNA Age: 73 year(s) Patient #: [id number] Race: Additional ID: [id number] Contact details [address]: [address] [place] [address] State: [place] City: [place] Zip code: [address] Past Medical History Allergies Allergen Reaction Date Comments Reported Other allergy 10/30/2019 NKDA Admission Admission Data Admission Date: 10/28/2019 Admission Time: 15:33 Room #: D[facility] Height (in.): 70.87 BSA: 2.15 (m2) Height (cm.): 180 BMI: 29.32 (kg/m2) Weight (lbs.): 209.44 Weight (kg.): 95 Lab Results Lab Result Date: 10/30/2019 Lab Result Time: 0:00 Biochemistry Name Units Result Min Max BUN mg/dl 17 --(---*)-- 7 18 Creatinine mg/dl 1.2 --(---*)-- 0.6 1.3 eGFR ml/min 63 *-(----)-- 90 120 NONAFRICAN CBC Name Units Result Min Max Hematocrit % 34.4 *-(----)-- 42 54 Hemoglobin g/dl 11.5 *-(----)-- 13.5 17.5 Procedure Procedure Types Cath Procedure Diagnostic Procedure LHC LHC w/Coronaries w/Grafts Aortic Root Angiography Sedation Charges Moderate Sedation up to 15 minutes Procedure Description Procedure Date Procedure Date: 10/30/2019 Procedure Start Time: 7:48 Procedure End Time: 8:11 Procedure Staff Name Function Len Mendoza MD Performing Physician Caitlyn Prieto RT Monitor Jada Fernando RN Nurse Molly Issa RT Scrub Rachel Kelly RT Laboratory Sample Carrier Procedure Data Cath Procedure Fluoroscopy Diagnostic fluoroscopy Total fluoroscopy Time: 3.7 time: 3.7 min min Diagnostic fluoroscopy Total fluoroscopy dose: 880 dose: 880 mGy mGy Contrast Material Contrast Material Type Amount (ml) Isovue 300 89 Entry Location Entry Primary Successful Side Size Upsize Upsize Entry Closure Succes sful Closure Location (Fr) 1 (Fr) 2 (Fr) Remarks Device Remarks Femoral Right 5 Fr Exoseal artery Estimated blood loss: 5 ml Diagnostic catheters Device Type Used For End Catheter Placement MULTIPACK JL 4.0 5Fr Left Coronary catheter Angiography DIAGNOSTIC AR MOD 5Fr Procedure Catheter ([id number]) DIAGNOSTIC IM 5Fr Procedure catheter ([id number]) MULTIPACK Pigtail 5 Fr LV Angiography catheter Procedure Complications No complications Procedure Medications Medication Administration Route Dosage 0.9% NaCl I.V. 100 ml/hr Oxygen etCO2 Nasal cannula 2 l/min Lidocaine 2% added to field 20 Heparin Flush Bag added to field 2 bags (1000units/500ml NS) Versed I.V. 2 mg Fentanyl I.V. 50 mcg Fentanyl I.V. 50 mcg Hemodynamics Rest BSA: 2.15 (m2) O2 Consumption: Estimated: 252.47 (ml/min) O2 Consumption indexed : Estimated:117.43 (ml/min/m) Heart Rate: 76 (bpm) Pressure Samples Time Site Value (mmHg) Purpose Heart Use Rate(bpm) 7:58 LV 107/-1,9 Snapshot 77 7:59 AO 110/56(78) Pullback 76 7:59 LV 109/5,7 Pullback 76 Gradients Valve Time Site 1 Site 2 Mean SEP/DFP Peak To Heart Use (mmHg) (sec/min) Peak Rate (mmHg) (bpm) Aortic 7:59 LV AO 0 17 0 76 109/5,7 110/56(78) Calculations Valve P-P Mean Valve Index Valve Source Name Gradient Area Flow (cm2) Aortic 0 0 0 0 Snapshots Pre Cath Intra NCS Post Cath Vital Signs Time Heart Resp SPO2 etCO2 NIBP (mmHg) Rhythm Pain Sedation Rate (ipm) (%) (mmHg) Status Level (bpm) 7:34:14 74 13 99 30 143/85(123) NSR 0 (11) 10(A) , No pain 7:38:30 84 23 100 29.8 146/86(123) NSR 0 (11) 10(A) , No pain 7:42:46 81 19 100 11.2 126/79(107) NSR 0 (11) 10(A) , No pain 7:47:00 77 15 100 30.6 126/74(95) NSR 0 (11) 10(A) , No pain 7:51:06 79 13 100 39.6 120/73(100) NSR 0 (11) 10(A) , No pain 7:55:14 76 13 100 38.8 126/76(103) NSR 0 (11) 9(A) , No pain 7:59:22 75 13 100 30.6 126/75(99) NSR 0 (11) 9(A) , No pain 8:03:34 78 13 99 35.8 113/66(97) NSR 0 (11) 9(A) , No pain 8:07:43 77 15 99 28.4 118/69(104) NSR 0 (11) 10(A) , No pain Medications Time Medication Route Dose Verified Delivered Reason Notes Effe ctiveness by by 7:32:04 0.9% NaCl I.V. 100 Len Jada used for ml/hr Reji Fernando specialties operator 7:32:14 Oxygen etCO2 2 Len Jada used for Nasal l/min Reji Fernando procedure cannula RN 7:32:19 Lidocaine 2% added 20ml Len Len for local to vial Reji Mendoza MD anesthetic field 7:32:23 Heparin Flush added 2 Len Len used for Bag to bags Reji Mendoza MD procedure (1000units/500ml field NS) 7:44:29 Versed I.V. 2 mg Len Jada for Reji Fernando sedation RN 7:44:37 Fentanyl I.V. 50 Len Jada for mcg Reji Fernando sedation RN 7:51:36 Fentanyl I.V. 50 Len Jada for mcg Reji Fernando sedation hiv/aids care nurse Log Time Note 7:06:34 Informed consent obtained and on chart 7:08:46 Lab Result : BUN 17 mg/dl 7::46 Lab Result : Hemoglobin 11.5 g/dl 7::46 Lab Result : Hematocrit 34.4 % 7::46 Lab Result : Creatinine 1.2 mg/dl 7::46 Lab Result : eGFR NONAFRICAN 63 ml/min 7:09:02 Patient Height : 70.87 inches 7:09:07 Patient Weight : 209.44 lbs 7:09:21 Procedure Status Urgent Heart Cath (IP). 7:09:25 Time tracking: Regular hours (M-F 7:00 - 5:00) 7:09:51 Patient allergic to Other allergyNKDA 7:10:09 Patient diabetic? Yes. 7:10:23 H&P Date Dictated: 10/30/2019 Within 30 days and on chart., ER History on chart.. 7:13:57 Molly Issa RT(R) sent for patient. Start room use. 7:14:06 Plan of Care:Hemodynamics will remain stable., Cardiac rhythm will remain stable., Comfort level will be maintained., Respiratory function will remain adequate., Patient/ family verbilizes understanding of procedure., Procedure tolerated without complication., Recovers from procedure without complications.. 7:24:30 Patient received from Med II to CCL 1 Alert and oriented. Tansferred to table in Supine position. 7:24:32 Warm blankets applied, and ashtyn hugger turned on for patient comfort. 7:24:33 Correct patient and procedure confirmed by team. 7:24:34 ECG and BP/O2 sat monitors applied to patient. 7:29:29 Pre-procedure instructions explained to patient. 7:29:29 Pre-op teaching completed and patient verbalized understanding. 7:29:31 Family in patients room. 7:29:32 Patient NPO since Midnight. 7:29:34 Is patient on blood thinner?Yes 7:29:40 ADOLFO SERRANO 7:29:43 If diabetic: On Metformin? No 7:29:46 Previous problem with sedation/anesthesia? No ? 7:29:47 Snore? Yes 7:29:48 Sleep apnea? No 7:29:49 Deviated septum? No 7:29:49 Opens mouth fully? Yes 7:29:50 Sticks out tongue? Yes 7:29:52 Airway obstruction? No ? 7:29:53 Dentures? No ? 7:29:56 Pre procedure: right dorsailis pedis pulse 1+ Palpable, but thready & weak; easily obliterated 7:30:00 Patient pain scale 0/10 ?. 7:30:03 IV patent on arrival in right antecubital with 0.9% NaCl at [facility]. 7:30:07 Right groin area was prepped with chlora-prep and draped in sterile fashion 7:30:07 Alarms reviewed by R. N. 7:30:08 Sharps counted by scrub and verified by R.N. 7:32:04 0.9% NaCl 100 ml/hr I.V. was administered by Jada Fernando RN; used for procedure; Verbal order read back and verified. 7:32:14 Oxygen 2 l/min etCO2 Nasal cannula was administered by Jada Fernando RN; used for procedure; Verbal order read back and verified. 7:32:19 Lidocaine 2% 20ml vial added to field was administered by Len Mendoza MD; for local anesthetic; Verbal order read back and verified. 7:32:23 Heparin Flush Bag (1000units/500ml NS) 2 bags added to field was administered by Len Mendoza MD; used for procedure; Verbal order read back and verified. 7:33:09 Vital chart was started 7:34:10 Baseline sample Acquired. 7:34:50 Rhythm: sinus rhythm 7:34:52 Full Disclosure recording started 7:34:53 7:34:59 Is the patient allergic to Iodine/contrast media? No. 7:35:03 Was the patient premedicated? Yes 7:35:13 ACC The patient was administered the following blood thiners within the last 24 hours: Xarelto 7:40:42 Lab results completed and on chart. 7:40:47 Risk of Mortality: 0.1 7:40:52 Risk of blood transfusion: 6.6 7:40:55 Risk of JATIN: 0.3 7:41:05 Use device set Femoral Dx 7:41:06 ACIST Syringe (16168) opened to sterile field. 7:41:07 Bag Decanter (2002S) opened to sterile field. 7:41:08 Medline Cath Pack ([id number]) opened to sterile field. 7:41:10 ACIST Hand Control (67570) opened to sterile field. 7:41:10 ACIST Manifold (22504) opened to sterile field. 7:41:12 DIAGNOSTIC Multipack 5Fr catheter set ([id number]) opened to sterile field. 7:41:13 Tegaderm 4 x 4 (1626W) opened to sterile field. 7:41:14 SHEATH 5FR Biscoe (FRM013) opened to sterile field. 7:41:15 EMERALD Guide Wire (336-631) opened to sterile field. 7:43:00 --------ALL STOP TIME OUT------ 7:43:01 Final Timeout: patient, procedure, and site verified with staff and physician. All members of the team are in agreement. 7:43:02 Right groin site verified by team. 7:43:05 Fire Safety Assessment: A--An alcohol-based skin anteseptic being used preoperatively., C--Open oxygen or nitrous oxide is being used., D--An ESU, laser, or fiber-optic light is being used. 7:43:09 Physical assessment completed. ASA score P 2 - A patient with mild systemic disease as per Len Mendoza MD. 7:43:13 2) 60-89 Mildly reduced kidney function, and other findings (as for stage 1) point to kidney disease. 7:43:16 Maximum allowable contrast dose (3.7 X eGFR X 0.75)175 ml. 7:43:20 Sedation plan: IV Moderate Sedation Medication:Versed, Fentanyl 7:44:29 Versed 2 mg I.V. was administered by Jada Fernando RN; for sedation; Verbal order read back and verified. 7:44:37 Fentanyl 50 mcg I.V. was administered by Jada Fernando RN; for sedation; Verbal order read back and verified. 7:46:40 Procedure started. 7:46:43 Zero performed for pressure channel P1 7:48:30 Local anesthetic to right femoral artery with Lidocaine 2% by Len Mendoza MD.INITIAL ACCESS ONLY 7:48:45 A 5 Fr sheath was inserted into the Right Femoral artery 7:48:54 A MULTIPACK JL 4.0 5Fr catheter was advanced over the wire and used for Left Coronary Angiography. 7:49:54 LCA angiography performed. 7:49:58 Injector settings: Ml/sec: 3, Volume: 6, 7:50:27 Catheter removed. 7:51:36 Fentanyl 50 mcg I.V. was administered by Jada Fernando RN; for sedation; Verbal order read back and verified. 7:51:40 A DIAGNOSTIC AR MOD 5Fr Catheter ([id number]) was advanced over the wire and used for Procedure. 7:52:03 RCA angiography performed. 7:52:08 Injector settings: Ml/sec: 3, Volume: 6, 7:53:51 SVG to Diag angiography performed. 7:54:28 SVG to OM angiography performed. 7:54:49 Catheter removed. 7:55:01 A DIAGNOSTIC IM 5Fr catheter ([id number]) was advanced over the wire and used for Procedure. 7:57:00 ESPINAL to LAD angiography performed. 7:57:06 Injector settings: Ml/sec: 3, Volume: 6, 7:57:31 Catheter removed. 7:57:51 A MULTIPACK Pigtail 5 Fr catheter was advanced over the wire and used for LV Angiography. 7:57:59 Injector settings: Ml/sec: 5, Volume: 15, 7:58:29 LV gram done using TOMAS 7:59:07 EF : 45 % 7:59:26 LV hemodynamics recorded. 7:59:37 Aortic Root visualized 7:59:45 Injector settings: Ml/sec: 10, Volume: 20, 8:06:47 EXOSEAL 5Fr (EX500) opened to sterile field. 8:06:55 Catheter removed. 8:07:09 Sheath removed intact; hemostasis achieved with Exoseal to the Right Femoral artery. 8:07:13 Procedure ended.(Physican Out) 8:07:34 Contrast amount:Isovue 300 89ml. 8:07:37 Maximum allowable dose exceeded? No. 8:07:45 Fluoroscopy time 03.70 minutes. 8:07:51 Fluoroscopy dose: 880 mGy 8:07:51 Flurop Dose total: 880 8:08:00 Dose Area Product 33745 mGy/cm. 8:08:02 Sharps counted by scrub and verified by R.N. 8:08:44 Post-op/insertion site Right Femoral artery dressed using a 4 x 4 and Tegaderm. 8:08:51 Post-procedure physical assessment completed. ASA score P 2 - A patient with mild systemic disease as per Len Mendoza MD. 8:08:55 Post procedure rhythm: unchanged. 8:08:59 Estimated blood loss: 5 ml 8:09:01 Post procedure instruction explained to patient.Patient verbalizes understanding. 8:09:02 Patient needs reinforcement of post procedure teaching. 8:09:34 Procedure type changed to Cath procedure, Diagnostic procedure, LHC, LHC w/Coronaries w/Grafts, Aortic Root Angiography, Sedation Charges, Moderate Sedation up to 15 minutes 8:09:50 Procedure and supply charges have been captured, reviewed, submitted and are correct. 8:10:29 Procedure Complication : No complications 8:10:34 Vital chart was stopped 8:10:42 [facility] Findings: mild to moderate CAD (<70%) 8:10:48 See physician's report for complete and final results. 8:10:52 Report given to Med II. 8:10:57 Patient transfered to Med II with Bed. 8:11:01 Procedure ended. 8:11:01 Full Disclosure recording stopped 8:11:04 End room use (Document Last) Device Usage Item Name Manufacture Quantity Catalog Hospital Part Current Minimal L ot# / Number Charge Number Stock Stock Serial# Code ACIST Acist 1 16856 484732 886850 105192 20 Syringe Medical (86291) Systems Inc Bag Microtek 1 187302 67657 869426 5 Decanter Medical Inc. () Medline Medline 1 [id number] 124748 94480 217255 5 Cath Pack ([id number]) ACIST Hand Acist 1 06562 103614 319566 840789 5 Control Medical (12410) Systems Inc ACIST Acist 1 02576 309431 911695 392537 5 Manifold Medical (32891) Systems Inc DIAGNOSTIC Cardinal 1 HA6737 494527 67239 772449 30 [facility] [place] 5Fr catheter set (FX5624) Tegaderm 4 3M 1 1626W 679334 413508 279647 5 x 4 (1626W) SHEATH 5FR Terumo 1 [id number] 541874 963727 888341 5 [place] (JHN461) EMERALD Cardinal 1 502-455 378200 881879 476946 5 Guide Wire Health (502-455) MULTIPACK Cardinal 1 322267 5 JL 4.0 5Fr Health catheter DIAGNOSTIC Cardinal 1 [id number] 571448 647765 883362 15 AR MOD 5Fr Health Catheter (132140J) DIAGNOSTIC Cardinal 1 [id number] 447585 569706 748987 5 IM 5Fr Health catheter ([id number]) MULTIPACK Cardinal 1 378579 5 Pigtail 5 Health Fr catheter EXOSEAL 5Fr Cardinal 1 EX500 181965 288013 453952 10 (EX500) Health Signature Audit [place] Stage Time Signature Unsigned Intra-Procedure 10/30/2019 Caitlyn 8:11:25 AM Conner RT(R) (CV) Intra-Procedure 10/30/2019 Jada Fernando 8:12:06 AM RN Intra-Procedure 10/30/2019 Len Mendoza MD 8:12:43 AM [facility] [address] [place] [address]
[~2019-10-27 10:47] MED LIST changes: +SENNA LAXATIVE8.6 MG PO; +STOOL SOFTENER100 M1 PO
[2019-10-27 11:37] LABS: CALC OSMOLALITY 262 mosm/kg (275-300); CALCIUM 9.4 mg/dL (8.5-10.1); CHLORIDE - SERUM 95 mmol/L (98-107); CREATININE - SERUM 1.5 mg/dL (0.6-1.3); GLUCOSE 194 mg/dL (74-106); SODIUM 127 mmol/L (136-145); UREA NITROGEN 22 mg/dL (7-18); eGFR NON AFRICAN AMERICAN 49 mL/min (90-120)
[2019-10-27 11:39] LABS: BASOPHILS 0.3 % (0-2); EOSINOPHILS 0.6 % (0-7); HEMOGLOBIN 13.3 g/dL (13.5-17.5); IMMATURE GRANULOCYTES 0.7 % (0-5); LYMPHOCYTES 6.4 % (15-50); MCH 31.5 pg (26.0-34.0); MCHC 33.3 g/dL (31.0-37.0); MCV 94.8 fL (80.0-100.0); MEAN PLATELET VOLUME 8.4 fL (7.4-10.4); MONOCYTES 6.1 % (2-11); NEUTROPHILS 85.9 % (40-80); RBC 4.22 10x6/uL (4.20-6.10); RDW 14.8 % (11.5-14.5); WBC 11.7 10x3/uL (4.8-10.8)
[2019-10-27 11:42] LABS: PLATELET COUNT 471 10x3/uL (130-400)
[2019-10-27 11:51] LABS: APTT 41.3 SECONDS (22.8-39.4); INR 2.92 (0.85-1.17)
[2019-10-27 11:53] LABS: ALBUMIN 3.1 g/dL (3.4-5.0); ALKALINE PHOSPHATASE 98 U/L (30-120); ALT (SGPT) 22 U/L (10-68); BILIRUBIN - TOTAL 0.44 mg/dL (0.2-1.3); CKMB 0.7 U/L (0.0-3.6); CREATINE KINASE 40 UL (21-232); MAGNESIUM - SERUM 1.5 mg/dL (1.8-2.4); PROTEIN - SERUM 7.1 g/dL (6.4-8.2)
[2019-10-27 11:54] LABS: TROPONIN-I < 0.017 ng/mL (0.000-0.060)
[2019-10-27 15:35] LABS: CKMB 0.7 U/L (0.0-3.6); TROPONIN-I 0.028 ng/mL (0.000-0.060)
--- NOTE | 2019-10-27 17:31 | NUR ---
ARRIVE TO ROOM VIA STRETCHER FROM ER ACCOMPANIED BY SPOUSE AND STAFF. TRANSFER FROM STRETCHER TO BED WITH MINIMAL ASSISTANCE. TAKES ADOLFO NO SCDs. LT KNEE STERI STRIPS INTACT FROM KNEE REPLACEMENT 2 WEEKS AGO. ALERT AND ORIENTED X4. AMBULATES WITH WALKER AT HOME. CONTINUE ADMISSION PROCESS AND SAFETY PRECAUTIONS.
[2019-10-28] VITALS: BP 112/65
[2019-10-28 04:00] VITALS: BP 128/71
[2019-10-28] MEDS ORDERED: BACTRIM DS TAB1 EAC1 PO (05:59)
[2019-10-28 07:10] LABS: ALBUMIN 2.7 g/dL (3.4-5.0); ANION GAP 11.2 mmol/L (8-16); BILIRUBIN - TOTAL 0.33 mg/dL (0.2-1.3); CALCIUM 8.7 mg/dL (8.5-10.1); CARBON DIOXIDE 21.6 mmol/L (21.0-32.0); CREATININE - SERUM 1.1 mg/dL (0.6-1.3); POTASSIUM - SERUM 3.8 mmol/L (3.5-5.1)
[2019-10-28 07:16] LABS: BASOPHILS 0.5 % (0-2); EOSINOPHILS 3.8 % (0-7); HEMATOCRIT 34.3 % (42.0-54.0); HEMOGLOBIN 11.5 g/dL (13.5-17.5); IMMATURE GRANULOCYTES 0.3 % (0-5); LYMPHOCYTES 18.7 % (15-50); MCH 31.2 pg (26.0-34.0); MCHC 33.5 g/dL (31.0-37.0); MEAN PLATELET VOLUME 8.1 fL (7.4-10.4); MONOCYTES 10.9 % (2-11); NEUTROPHILS 65.8 % (40-80); PLATELET COUNT 410 10x3/uL (130-400); RBC 3.69 10x6/uL (4.20-6.10); RDW 14.8 % (11.5-14.5)
--- NOTE | 2019-10-28 07:29 | HP ---
PATIENT: AZAM LATHAM MEDICAL RECORD: [id number] ACCOUNT: [id number] LOCATION:[address] : [birth year] ADMISSION DATE: 10/27/19 PCP: CYNTHIA CURTIS MD HISTORY AND PHYSICAL EXAMINATION REASON FOR ADMISSION: Fatigue and near syncope. HISTORY OF PRESENT ILLNESS: The patient is a 73-year-old male who recently underwent a left total knee replacement. He did well postoperatively, but a week ago, felt short of breath with exertion and lightheaded. He went to the ED where concern for PE was entertained. He had negative CTA, showed mild azotemia, medications were adjusted, and he was sent home. The patient felt pretty well until this morning, said he did not feel well this morning, he felt more fatigued. He called to come to the office, getting out of the car, walked in the office, became very lightheaded, short of breath and felt like he would faint. When examined, his blood pressure was 70/40 with a heart rate of 90, he was placed on the floor head down and his color improved. He did not lose consciousness. He denied chest pain. Ambulance was called and the patient was transferred to the ED for evaluation. He has a history of 3-vessel CABG [place] [address] Neal. He had a LAD and several marginal branches bypass. He had an echocardiogram earlier this month preoperatively that showed an EF of 55%, mild left atrial enlargement, otherwise unremarkable. He states he has not had any type of a stress test that he thinks since his bypass surgery. He denies exertional symptoms except for shortness of breath and then blood pressure dropping today. Additionally, he had a bleeding duodenal ulcer in September of this year requiring multiple transfusions and gold probe cauterization. His hemoglobin has been stable since that time pre and postoperatively. PAST HISTORY: Pulmonary embolus, on chronic anticoagulation from 2012, had a pulmonary embolus postoperatively in 1980, DVT of his right lower extremity in 2013. Metabolic syndrome, osteoarthritis, chronic left renal cyst that was drained remotely, allergic rhinitis, erectile dysfunction, renal insufficiency, hyperlipidemia, remote Agent [address] exposure, asbestos exposure, history of asthma, BPH, diverticulosis, GERD, gout, history of renal stones, adult sleep apnea. SURGICAL HISTORY: Cholecystectomy, 4-vessel CABG in 09/2014, history of cyst removed from left kidney, kidney stones removed surgically, tonsillectomy, colonoscopy, and recent left total knee replacement. ALLERGIES: None known. FAMILY HISTORY: Father had colon cancer. Mother with hypertension and heart disease. SOCIAL HISTORY: Never smoked, is exposed to asbestos in the workplace. Does not use alcohol. He is retired from [employer] and is . HOME MEDICATIONS: Hydrocodone 10/325 one q.6 hours for severe pain, Lyrica 50 mg daily, potassium - Klor-Con 10 mEq daily, stool softener 100 mg daily, diltiazem CD 300 mg a day, gemfibrozil 600 mg daily, allopurinol 150 mg p.o. daily, metformin XR 500 mg p.o. at bedtime, glipizide 10 mg p.o. daily, Xarelto 20 mg at bedtime, Mirapex 0.5 mg p.o. at bedtime, pravastatin 20 mg p.o. at bedtime, Zestril 20 mg a day, folic acid and multivitamin 1 daily, Singulair 10 mg with evening meal, Protonix 40 mg daily. HISTORY AND PHYSICAL [id number] AZAM LATHAM REVIEW OF SYSTEMS: CONSTITUTIONAL: Has had mild fatigue since surgery. No recent fever. HEENT: No recent visual change, sinus congestion, or sore throat. Wears glasses to read. RESPIRATORY: Shortness of breath on exertion intermittently over the last 2 weeks postoperatively. He has had no sputum production or pleuritic chest pain, no hemoptysis. CARDIAC: Denies exertional chest pain. Does have GREEN. No increasing edema in his lower extremities, he said postoperative in the left lower extremity. Denies palpitations or anginal symptoms. GASTROINTESTINAL: No nausea, vomiting, change in stools, or blood per rectum. GENITOURINARY: Nocturia once nightly. ENDOCRINE: Denies polyuria, polydipsia, heat or cold intolerance. NEUROLOGIC: No history of stroke, TIA, or vascular headaches. INTEGUMENT: No rash or itching. PSYCHIATRIC: Denies depressed mood. PHYSICAL EXAMINATION: VITAL SIGNS: In the office, his blood pressure was 74/50 with a heart rate of 90 and regular, supine. Sat 99%. Temperature 97.9. GENERAL: The patient is alert and oriented at this time. HEENT: His eyes are clear. Oropharynx unremarkable. NECK: No bruits or masses. CHEST: Chest wall nontender. Chest is clear without wheeze or rales. HEART: Regular rate without MGR. PMI appropriate. ABDOMEN: Soft. GENITOURINARY: Deferred. EXTREMITIES: His left knee shows recent healing incision for left total knee. There is mild edema distally, 2+ anterior tibial area. Negative Homans. NEUROLOGICAL: Grossly intact. Gait was unsteady due to lightheadedness, but no obvious motor deficits were appreciated. LABORATORY DATA: Sodium 127 which is low, potassium is 4, BUN is 22, creatinine 1.5, glucose is 194 nonfasting. Calcium, magnesium are normal. Cardiac enzymes are negative times 1. INR is 2.92. White count 11.7, H&H of 13 and 40.0 respectively, platelet count 471,000. DIAGNOSTIC STUDIES: Recent CT of the lungs was negative on the . Chest x-ray shows left basilar atelectasis without change. ASSESSMENT: Exertional hypotension and shortness of breath, possible angina equivalent in a patient with history of CABG 5 years previously, metabolic syndrome, hyponatremia, recent left total knee replacement for end-stage osteoarthritis, hyperlipidemia, remote deep vein thrombosis and pulmonary embolism - on chronic anticoagulation, essential hypertension, gout, gastroesophageal reflux disease, recent peptic ulcer with gastrointestinal bleed. PLAN: The patient will be admitted for hydration. We will hold metformin due to creatinine elevation. We will have cardiac monitoring. Cardiology consult to rule out occult angina source as cause of his symptoms. I explained preadmission diagnosis and workup with the patient and spouse and they concur. TRANSINT:[id number] Voice Confirmation ID: [id number] DOCUMENT ID: [id number] HISTORY AND PHYSICAL [id number] AZAM LATHAM TIMOTHY MD at 0729 CC: [id number] DICTATION DATE: 10/27/19 1339 AUDIOLOGY TECHNICIAN: 10/28/19 0036 ADM IN [facility] [address] [place] [address]
--- NOTE | 2019-10-28 08:28 | NUR ---
REPORT RECEIVED. WILL CONTINUE WITH POC. PT CURRENTLY AAO AND UP WITH MIN ASSIST. AT BEDSIDE. RR EVEN AND UNLABORED ON RA. PT REQUESTING PAIN MEDICATION ALONG WITH OTHER AM MEDS. AM MEDS ADMININSTERED. NO S/S OF DISTRESS NOTED. ASSESSMENT COMPLETE. WILL CTM.
[2019-10-28 09:36] VITALS: BP 121/79
[2019-10-28 13:00] VITALS: BMI 29.3
[2019-10-28 13:39] VITALS: BP 135/81
--- NOTE | 2019-10-28 19:40 | NUR ---
PATIENT IS RESTING IN BED. HE IS ALERT AND ORIENTATED. HE WAS ASKING ABOUT A HEART CATH ON SUNDAY, BUT HE IS NOT ON THE SCHEDULE. HE DID NOT SEE THE ELECTRICAL ENGINEERING PROFESSOR. WE WILL MONITOR HIS HEART RATE AND RHYTHM.
[2019-10-28 20:00] VITALS: BP 131/74
[2019-10-29 04:00] VITALS: BP 131/76
[2019-10-29 05:56] LABS: ANION GAP 10.3 mmol/L (8-16); CALCIUM 8.9 mg/dL (8.5-10.1); CARBON DIOXIDE 24.5 mmol/L (21.0-32.0); CREATININE - SERUM 1.2 mg/dL (0.6-1.3); POTASSIUM - SERUM 3.8 mmol/L (3.5-5.1)
[2019-10-29 07:49] VITALS: BP 128/75
[2019-10-29 08:57] VITALS: Ht 180.3 cm; Wt 95.3 kg
--- NOTE | 2019-10-29 09:38 | NUR ---
REPORT RECIEVED. WILL CONTINUE WITH POC. PT CURRENTLY LYING SEMI FOWLERS. CALL LIGHT W/I REACH. PT IS AAO AND UP WITH ASSIST. RR EVEN AND UNLABORED ON RA. PIV TO R.FOR SALINE LOCKED. NO S/S OF DISTRESS NOTED. PT DENIES ANY NEEDS AT THIS TIME. FALL PRECAUTIONS IN PLACE. WILL CTM.
--- NOTE | 2019-10-29 16:28 | NUR ---
RECEIVED VERBAL ORDERS PER FOR 10MG OF VITAMIN K ONE TIME DOSE AND TO REPEAT INR IN THE AM. ORDER PLACED. WILL CTM.
[2019-10-29 19:18] VITALS: BP 123/63
[2019-10-29 23:20] VITALS: BP 113/63
[2019-10-30 04:00] VITALS: BP 129/67
[2019-10-30 07:08] LABS: INR 1.37 (0.85-1.17); PROTIME 16.7 SECONDS (11.6-15.0)
[2019-10-30 07:16] LABS: ANION GAP 13.7 mmol/L (8-16); CALCIUM 8.6 mg/dL (8.5-10.1); CARBON DIOXIDE 25.9 mmol/L (21.0-32.0); CREATININE - SERUM 1.2 mg/dL (0.6-1.3); POTASSIUM - SERUM 4.6 mmol/L (3.5-5.1)
--- NOTE | 2019-10-30 07:24 | NUR ---
PREOP MEDICATIONS ADMININSTERED PER DIRECTOR AGRICULTURAL SERVICES REQUEST. PT TRANSFERED TO DIRECTOR AGRICULTURAL SERVICES.
--- NOTE | 2019-10-30 08:34 | NUR ---
PT RETURN FROM [facility]STER. RIGHT FEM CATH SITE IS C/D/I WITH NO S/S OF HEMATOMA PRESENT. PERIPHERAL PULSES EVEN BILATERALLY. NS INFUSING @200ML/HR VIA R.FOR PIV. PT RESTING WITH EYES CLOSED. WILL CTM.
[2019-10-30 12:00] VITALS: BP 109/65
--- NOTE | 2019-10-30 12:19 | NUR ---
Nutrition Follow-up: Cath this AM. Eating well. Diet: Diabetic Wt: 210# (10/27) Last BM: 10/29 Labs noted: Na 131, Glu 83 Meds noted: Micro K, Colace, Senokot, Glucotrol, Humulin, Protonix, electrolyte protocol -Need new wt; noted daily wts ordered. -RD following.
[2019-10-30] MEDS ORDERED: HYDROCODON-ACE1 EA10 PO (14:37)
--- NOTE | 2019-10-30 14:48 | NUR ---
PT DISCHARGED HOME VIA WHEELCHAIR. PIV REMOVED WITH CATHETER TIP FULLY INTACT. TELEMETRY REMOVED AND RETURNED. PT SIGNED PROPER DISCHARGE INSTRUCTIONS AND REMOVED ALL VALUABLES FROM THE ROOM.
--- NOTE | 2019-10-30 16:48 | MORECARE ---
CASE MANAGEMENT DISCHARGE SUMMARY PATIENT: BRANDON LATHAM UNIT: [id number] ADM DATE: 10/28/19 AGE: 73 : 45 SEX: M ROOM/BED: D.2126 AUTHOR: STEPHANIE BROWN PHYSICIAN: REFERRING PHYSICIAN: CYNTHIA CURTIS MD DATE OF SERVICE: 10/30/19 Discharge Plan Patient Name: BRANDON LATHAM [facility] [facility] 1945 Planned Disposition: Outpatient PT\OT Anticipated Discharge Date: 10/30/19 Discharge Date: 10/30/2019 Expected LOS: 2 Initial Reviewer: [email or web address] Initial Review Date: 10/27/2019 Generated: 10/30/19 5:47 pm Coverage Notice Reviewer: [email or web address] Clovis Goodson Notice Issued Date-Time: 10/28/2019 11:30 Notice Type: Medicare Outpatient Observation Notice Notice Delivered To: Patient Relationship to Patient: Steam Blocker Name: Delivery Method: HAND - Hand Delivered Chelsea Days: Prior Verbal Notification: Recipient Understood Notice: Yes Recipient Signature: Yes Med Rec Note Co-signed by Attending: Coverage Notice Comment: gooden delivered Reviewer: [email or web address] Clovis Olivarez Notice Issued Date-Time: 10/30/2019 16:38 Notice Type: IM Discharge Notice Notice Delivered To: Patient Relationship to Patient: Spouse Steam Blocker Name: Brandon Latham Delivery Method: - Chelsea Days: Prior Verbal Notification: Recipient Understood Notice: Recipient Signature: Med Rec Note Co-signed by Attending: Coverage Notice Comment: Patient Name: BRANDON LATHAM Page [phone] at 1648 All edits/amendments must be made on the electronic document DICTATION DATE: 10/30/191646 MAINTENANCE PARTS TECHNICIAN: MELISSA 10/30/191646 RPT#: [id number] DC DATE:10/30/19 STATUS: DIS IN [facility] [address] [place] [address] END OF REPORT
--- NOTE | 2019-10-31 18:39 | MORECARE ---
CASE MANAGEMENT DISCHARGE SUMMARY PATIENT: BRANDON LATHAM UNIT: [id number] ADM DATE: 10/28/19 AGE: 73 : 45 SEX: M ROOM/BED: D.3105 AUTHOR: STEPHANIE BROWN PHYSICIAN: REFERRING PHYSICIAN: CYNTHIA DEMPSEY MD DATE OF SERVICE: 10/31/19 Discharge Plan Patient Name: BRANDON LATHAM Facility: [facility]:[place] : 1945 Planned Disposition: Outpatient PT\OT Anticipated Discharge Date: 10/30/19 Discharge Date: 10/30/2019 Expected LOS: 2 Initial Reviewer: [email or web address] Initial Review Date: 10/27/2019 Generated: 10/31/19 7:38 pm Comments DCP- Discharge Planning Updated by [email or web address]: Ashlie Olivarez on 10/31/19 5:[address] Late entry for 10/29 CM met with patient regarding DC plans/needs. Patient lives independently with his , Caitlyn Latham ([phone]). PCP: Dr. Dempsey. Pharmacy: [facility], [employer] mail-off for fdc medications.. Patient states he as been able to obtain all of his prescribed medications. DME: walker, BSC, CPM, Ice therapy ([employer]). INTERNET SALES REPRESENTATIVE the patient was participating in OP Therapy with GOVERNMENT SERVICES PROFESSIONAL and will resume same. CM discussed HHS, Rehab, SNF with patient, but he states that he prefers continuing his OP therapy. Patient's , Caitlyn will drive him home. No other needs voiced. Coverage Notice Reviewer: [email or web address] - Mahnaz Goodson Notice Issued Date-Time: 10/28/2019 11:30 Notice Type: Medicare Outpatient Observation Notice Notice Delivered To: Patient Relationship to Patient: Airplane Refueler Name: Delivery Method: HAND - Hand Delivered Chelsea Days: Prior Verbal Notification: Recipient Understood Notice: Yes Recipient Signature: Yes Med Rec Note Co-signed by Attending: Coverage Notice Comment: gooden delivered Reviewer: [id number] - Ashlie Olivarez Notice Issued Date-Time: 10/30/2019 16:38 Notice Type: IM Discharge Notice Notice Delivered To: Patient Relationship to Patient: Spouse Airplane Refueler Name: Brandon Latham Delivery Method: - Chelsea Days: Prior Verbal Notification: Recipient Understood Notice: Recipient Signature: Med Rec Note Co-signed by Attending: Coverage Notice Comment: Last DP export: 10/30/19 3:48 p Patient Name: BRANDON LATHAM Page [phone] at 1839 All edits/amendments must be made on the electronic document DICTATION DATE: 10/31/191837 RESIDENT INSPECTOR: MELISSA 10/31/191837 RPT#: [id number] DC DATE:10/30/19 STATUS: DIS IN [facility] [address] [place] [address] END OF REPORT
== END 2019-10-30 14:48 | disposition home or self-care (01) | DRG 287 ==
LOC: D.ER 10:47 → D.M2 15:56 → OBSVTIME 15:57 → D.M2 10-28 15:33
PROVIDERS: Family Medicine; Internal Medicine Cardiovascular Disease; ADMIT Family Medicine; ATTEND Family Medicine
PROC: B2111ZZ Fluoroscopy of Multiple Coronary Arteries using Low Osmolar Contrast (ICD-10-PCS; 2019-10-30)
PROC: B2131ZZ Fluoroscopy of Multiple Coronary Artery Bypass Grafts using Low Osmolar Contrast (ICD-10-PCS; 2019-10-30)
PROC: B2151ZZ Fluoroscopy of Left Heart using Low Osmolar Contrast (ICD-10-PCS; 2019-10-30)
PROC: 4A023N7 Measurement of Cardiac Sampling and Pressure, Left Heart, Percutaneous Approach (ICD-10-PCS; 2019-10-30)
PROC: B2181ZZ Fluoroscopy of Left Internal Mammary Bypass Graft using Low Osmolar Contrast (ICD-10-PCS; principal; 2019-10-30 07:30)
DX: I95.1 Orthostatic hypotension (principal); E87.1 Hypo-osmolality and hyponatremia; E88.81 Metabolic syndrome and other insulin resistance; E78.5 Hyperlipidemia, unspecified; Z79.01 Long term (current) use of anticoagulants; I10 Essential (primary) hypertension; K21.9 Gastro-esophageal reflux disease without esophagitis; E66.9 Obesity, unspecified; Z68.29 Body mass index [BMI] 29.0-29.9, adult; E11.9 Type 2 diabetes mellitus without complications; Z86.718 Personal history of other venous thrombosis and embolism; Z86.711 Personal history of pulmonary embolism